=== PATIENT | male | born 1985 | race Caucasian/White ===

== ENCOUNTER 2025-02-10 16:55 | Emergency (ER) | payer BC, SELFPAY ==
[2025-02-10 17:01] VITALS: BP 132/83; PULSE 74; RESP 16; TEMP 36.9; O2SAT 94; BMI 31.2
--- NOTE | 2025-02-10 17:23 | CRLHL7_ITS ---
For Patients: As a result of the Century Cures Act, medical imaging exams and procedure reports are released immediately into your electronic medical record. You may view this report before your referring provider. If you have questions, please contact your health care provider. INDICATION: Shortness of breath, right upper rib pain anterior, osteogenesis imperfecta TECHNIQUE: Rib radiograph 2 views COMPARISON: None FINDINGS: The sensitivity and specificity of the exam are moderately limited by the patient`s body habitus. Bone: No definite acute rib fractures are identified in the visualized ribs. The remaining osseous structures are unremarkable for age. Lung: Small lung volumes are present with patchy consolidation and volume loss in the right middle lobe. No sign of pleural effusion seen. No pneumothorax is identified. Soft tissue: Unremarkable. No radiopaque foreign bodies are seen. IMPRESSIONS: 1. Small lung volumes are present with patchy consolidation and volume loss in the right middle lobe. These findings can be seen with atelectasis and/or pneumonia. 2. If there is a high clinical index of suspicion for rib injury, dedicated rib series radiographs are recommended. Dictated by Ronny Allen MD @ 02/10/2025 6:06:18 PM Dictated by: Ronny Allen MD @ 02/10/2025 18:06:23 (Electronically Signed)
--- NOTE | 2025-02-10 17:53 | ED.SOB ---
HPI - SOB/Dyspnea General Date Seen: 02/10/25 Chief Complaint: Shortness of Breath/Dyspnea Stated Complaint: Shortness of breath Time Seen by Provider: 02/10/25 17:07 Source: patient Mode of arrival: ambulatory Limitations: no limitations History of Present Illness HPI Narrative: Patient is a 39-year-old male presenting to the emergency department for shortness of breath. He states he is concerned he has pneumonia. States for the past 1-2 weeks he has been having cough, congestion, shortness of breath with chills and sweats. Is not having any midsternal chest pain. Does not notice any worsening pain with deep breaths. No history of blood clots. Is not on any hormonal treatment. Denies in recent surgeries, travel. Has not had any hemoptysis or unilateral leg swelling. Also states he is concerned he broke a rib after playing with his children over the weekend. Does have osteogenesis imperfecta and has 5/10 sharp pain to his right upper anterior ribs. Pain is worse with cough or movement. Denies having symptoms like this before. Is not aware of any sick contacts. Has been using a nebulizer at home without any improvement in his symptoms. Has not noticed any wheezing. Related Data Previous Rx's ?Medication ?Instructions ?Recorded azithromycin 250 mg tablet See Rx Instructions PO .COMPLEX #6 02/10/25 (Zithromax) tabs Allergies Allergy/AdvReac Type Severity Reaction Status Date / Time No Known Drug Allergies Allergy Verified 02/10/25 17:05 Review of Systems Status of ROS: Reports: 10 or more systems reviewed and unremarkable except as noted in History and below Exam Narrative: Exam Narrative: Const: Well-nourished, Well-developed, in mild distress Eyes: PERRL, no conjunctival injection, and symmetrical lids HENT: Atraumatic external nose and ears. Moist mucous membranes. Neck: Symmetric, trachea midline, No thyromegaly. CVS: RRR, No murmurs or gallops. Peripheral pulses 2+ and equal in all extremities RESP: Unlabored respiratory effort. Clear to auscultation bilaterally. GI: Nontender/Nondistended, No rebound or guarding. MSK:Extremities w/o deformity, Normal Active ROM, tenderness to palpation right upper chest at about ribs 3 Skin: Warm, Dry. No rashes or lesions. Neuro: Normal Muscle tone, No focal neurological deficits. Psych: Awake, Alert, & Oriented x3. Appropriate mood and affect. Const: Vital Signs, click to edit/add: Vital Signs - 24 hr 02/10/25 17:01 Temperature 98.5 F Pulse Rate [Pulse Oximeter] 74 Respiratory Rate 16 Blood Pressure [Ri ght Upper Arm] 132/83 Pulse Oximetry 94 Oxygen Delivery Me thod Room Air Course Vital Signs Vital signs: Initial Vital Signs Temperature 98.5 F 02/10/25 17:01 Temperature Source Oral 02/10/25 17:01 Pulse Rate 74 02/10/25 17:01 Respiratory Rate 16 02/10/25 17:01 Blood Pressure 132/83 02/10/25 17:01 Blood Pressure Mean 99 02/10/25 17:01 Blood Pressure Position Sitting 02/10/25 17:01 Pulse Oximetry 94 02/10/25 17:01 Oxygen Delivery Method Room Air 02/10/25 17:01 Vital Signs Temperature 98.5 F 02/10/25 17:01 Pulse Rate 74 02/10/25 17:01 Respiratory Rate 16 02/10/25 17:01 Blood Pressure 132/83 02/10/25 17:01 Pulse Oximetry 94 02/10/25 17:01 Oxygen Delivery Method Room Air 02/10/25 17:01 Temperature 98.5 F 02/10/25 17:01 Pulse Rate 74 02/10/25 17:01 Respiratory Rate 16 02/10/25 17:01 Blood Pressure 132/83 02/10/25 17:01 Pulse Oximetry 94 02/10/25 17:01 Oxygen Delivery Method Room Air 02/10/25 17:01 MDM - SOB/Dyspnea MDM Narrative Medical decision making narrative: Patient is a 39-year-old male presenting to the emergency department for shortness of breath. The differential diagnosis of shortness of breath is broad and includes common etiologies such as COPD, asthma, pneumonia, viral syndrome, etc. More serious etiologies considered include PE, CHF, coronary artery disease, pneumothorax, aortic dissection, aortic aneurysm. He is a current smoker but has no history of COPD or asthma and I do not hear any wheezing. His vital signs are stable and in her dissection and aortic aneurysm seem unlikely at this time. He is PERC negative and PE can not be ruled out. His chest pain is reproducible so ACS seems unlikely. Will do chest x-ray look for signs of pneumonia, pneumothorax, rib fracture. Symptoms seem likely viral and will order COVID/flu/RSV. Chest x-ray showed possible pneumonia. Considering his symptoms I will treat him for pneumonia. X-ray shows no clear fractures. As there is unlikely to be a large displaced fracture in treatment for a nondisplaced fracture is symptomatic I do not believe further imaging is necessary. This time will discharge home with azithromycin. He is agreeable to this plan. Lab Data Labs: Lab Results 02/10/25 Range/Units 17:05 SARS-CoV-2 (PCR) Negative SARS-CoV-2 (Negative) Influenza Type A (PCR) Negative PCR FLU A (Negative) Influenza Type B (PCR) Negative PCR FLU B (Negative) Imaging Data Chest x-ray: Attestation: I have reviewed the pertinent imaging results. Radiologist's impression: 1. Small lung volumes are present with patchy consolidation and volume loss in the right middle lobe. These findings can be seen with atelectasis and/or pneumonia. 2. If there is a high clinical index of suspicion for rib injury, dedicated rib series radiographs are recommended. Dictated by Ronny Allen MD @ 02/10/2025 6:06:18 PM Discharge Plan Discharge Clinical Impression: Pneumonia Qualifiers: Pneumonia type: due to unspecified organism Laterality: right Lung location: middle lobe of lung Qualified Code(s): J18.9 - Pneumonia, unspecified organism Patient Disposition: Home, Self-Care Condition: Stable Instructions: Pneumonia (ED) Additional Instructions: Take the prescribed Z-Kameron for your possible pneumonia. No obvious fracture was seen on your chest x-ray. There still might be a small nondisplaced fracture and do recommend Tylenol and ibuprofen for pain control. Return to emergency department for new or worsening symptoms. Prescriptions: New azithromycin [Zithromax] 250 mg tablet See Rx Instructions .ROUTE .COMPLEX Qty: 6 0RF Rx Instructions: For 250 mg dose pack: take 500 mg today (day 1), then 250 mg for 4 days (days 2-5) Follow Up/Referrals: Provider,Not a Local [Primary Care Provider] - Stand Alone Forms: [employer] Info Instructions
[2025-02-10 18:06] LABS: PCR FLU A Negative PCR FLU A (Negative); PCR FLU B Negative PCR FLU B (Negative); SARS PCR* Negative SARS-CoV-2 (Negative)
--- OUTSIDE RECORDS SUMMARY | 2025-02-10 18:15 | XMS_ITS | Clinical Summary ---
Author Organization [facility] Address [address] [place] [address] Care Team Providers Care Planning Management It Specialist Name Role Phone Found, No Pcp MD Primary Care Provider Unavailab le Source Comments You are receiving this document as you are listed as the primary care provider,follow-up provider, or the patient has been referred to you for consultation.This is in compliance with the Medicare andMedicaid EHR Incentive Program,which states Providers who transition their patient to another setting of careor provider of care or refers their patient to another provider of care shouldprovide summary care record for each transition of care or referral. [facility] Active Allergy Reactions Criticality Noted Date Comments Codeine Nausea And Vomiting 01/30/2010 Morphine Nausea And Vomiting 05/31/2006 Medications ibuprofen (MOTRIN) 800 MG tablet Take 1 tablet by mouth 3 times daily. 30 tablet 0 04/01/2012 Active acetaminophen (TYLENOL) 325 MG tablet Take 325-650 mg by mouth every 4 hours as needed. Maximum 4000mg per 24 hours 06/30/2012 Active predniSONE (DELTASONE) 20 MG tablet Take one 2x per day for 5 days. 10 Tablet 11/13/2018 Active Immunizations Immunization Administration Dates Next Due DTP 06/14/1992, 8,02/20/1987,1986,1986 HepB Adult (Engerix-B, 20+ y rs, 3 dose series) 03/09/1996,09/05/1995,04/15/1995 Hib (ActHIB) 08/13/1988 MMR 11/09/1987 OPV, Trivalent (Orimune or tOPV) 992,08/13/1988,1986,1985 TDAP (ADACEL) 07/07/2008 Social History Tobacco Use Types Packs/Day Years Used Date Smoking Tobacco: Every Day Cigarettes Smokeless Tobacco: Never Comments:Quit smoking: Sex and Gender Information Value Date Recorded Sex Assigned at Not on file Legal Sex Male 3:55 AM CDT Gender Identity Not on file Sexual Orientation Not on file Last Filed Vital Signs Vital Sign Reading Time Taken Comments Blood Pressure 142/81 11/13/2018 3:17 PM WINTER SPORTS MANAGER Pulse 82 11/13/2018 3:17 PM WINTER SPORTS MANAGER Temperature 36.9 C (98.4 F) 11/13/2018 3:17 PM WINTER SPORTS MANAGER Respiratory Rate 16 11/13/2018 3:17 PM WINTER SPORTS MANAGER Oxygen Saturation 96% 11/13/2018 3:17 PM WINTER SPORTS MANAGER Inhaled Oxygen Concentration - - Weight - - Height - - Body Mass Index - - Plan of Treatment Health Maintenance Due Date Last Done Comments Hep C Screening (Preventive Services) 1986 HIV Screening (Preventive Services) 2002 Adult Preventive Visit 2004 DTaP/Tdap/Td (7 - Tdap) 07/07/2018 07/07/20 08, 07/07/2008, 06/14/1992, Additional history exists Cholesterol 2021 COVID-19 Vaccine ( season) 2024 Influenza (#1) 2024 Zoster/Shingles (1 of 2) 2036 Hib Completed 08/13/1988 IPV (Polio) Completed 06/14/1992, 08/01, 1986, Additional history exists HepB Completed 03/09/1996, 05/1995, 04/15/1995 HPV Vaccine Aged Out No longer eligi ble based on patient's age to complete this topic HepA Aged Out No longer eligi ble based on patient's age to complete this topic MCV4 Aged Out No longer eligi ble based on patient's age to complete this topic Meningococcal B Aged Out No longer el igible based on patient's age to complete this topic Pneumococcal Aged Out No longer eligi ble based on patient's age to complete this topic Insurance [facility] INS WORK COMP Comp [id number] [address] Care Teams Planning Management It Specialist Relationship Specialty Start Date End Date Found, No Pcp, [address] [place] [address] PCP - General 07/29/18
--- OUTSIDE RECORDS SUMMARY | 2025-02-10 18:15 | XMS_ITS | Encounter Summary ---
Author Organization [facility] Address [address] [place] [address] Care Team Providers Care Photographic Laboratory Technician Name Role Phone No Ref-Primary, Physician Primary Care Provider Robert Recio MD Unavailable Luis M Rubalcava MD Unavailable [phone] Robert German MD Unavailable [phone] Luis M Rubalcava MD Unavailable [phone] Nelson Moore DO Primary Care Provider Nelson Moore DO Unavailable [phone] Reason for Visit * Reason Onset Date Comments Appointment 12/03/2018 hospital f/u maria victoria t Encounter Details Date Type Department Care Team (Late st Contact Info) Description 12/03/2018 Telephone [facility] Dermatology [address] [facility] 3rd [place] [address] Luis M Rubalcava MD [address] [place] [address] Appointment (hospital f/u appt) Social History Tobacco Use Types Packs/Day Years Used Date Smoking Tobacco: Former Cigarettes Smokeless Tobacco: Never Alcohol Use Standard Drinks/Week Comments Yes 0 (1 standard drink = 0.6 oz pur e alcohol) occasionally Sex and Gender Information Value Date Recorded Sex Assigned at Male 09/12/2021 5:21 PM CDT Legal 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 Gender Identity Male 09/12/2021 5:21 PM CDT Sexual Orientation Straight 09/12/2021 5: 21 PM CDT documented as of this encounter Miscellaneous Notes * Telephone Encounter - Selene Montillaie - 12/03/2018 4:02 PM CST [facility] Phone Message May a detailed message be left on voicemail: yes Reason for Call: Other: per pts fiance- called to [facility] f[facility] appt on the dec 08, thanks Action Taken: Message routed to: [facility] derm AGE CONTROL OPERATOR documented in this encounter Plan of Treatment Not on file documented as of this encounter Visit Diagnoses Not on filedocumented in this encounter Care Teams Photographic Laboratory Technician Relationship Specialty Start Date End Date No Ref-Primary, Physician PCP - General 11/21/18 11/28/22 [place] [address] [place] [address] PCP - General Family Medicine 11/29/22 [place] [address] [place] [address] Assigned PCP 08/15/19 08/16/22 Luis M Rubalcava MD [address] [place] [address] Assigned Pediatric Specialist Provider 09/22/20 12/31/20 Robert German MD [address] [place] [address] Assigned Rheumatology Provider 09/22/20 04/06/22 Luis M Rubalcava MD [address] [place] [address] Assigned Surgical Provider 09/22/20 [place] [address] [place] [address] Assigned PCP 12/07/22 documented as of this encounter
--- OUTSIDE RECORDS SUMMARY | 2025-02-10 18:15 | XMS_ITS | Encounter Summary ---
Author Organization [facility] Address [address] [place] [address] Care Team Providers Care Yard Inspector Name Role Phone Teresa Nelson Primary Care Provider [phone] Nelson Moore DO Unavailable [phone] Encounter Details Date Type Department Care Team (Late st Contact Info) Description 01/27/2023 [facility] [address] [place] [address] Stephani Ac Social History Tobacco Use Types Packs/Day Years Used Date Smoking Tobacco: Former Cigarettes Q uit: 07/01/2022 Smokeless Tobacco: Never Alcohol Use Standard Drinks/Week Comments Yes 0 (1 standard drink = 0.6 oz pur e alcohol) occasionally Social Connection and Isolat ion Panel [NHANES] Answer Date Recorded In a typical week, how many times do you talk on the phone with family, friends, or neighbors? More than three times a week 11/27/2022 How often do you get togethe r with friends or relatives? Twice a week 11/27/2022 How often do you attend chur ch or jainism services? Never 11/27/2022 Do you belong to any clubs o r organizations such as uatsdin groups, unions, fraternal or athletic groups, or school groups? Yes 11/27/2022 Attends Club or Organization Meetings Not on latasha e 11/27/2022 Are you , , di vorced, , never , or living with a partner? 11/27/2022 AUDIT-C Answer Date Recorded Q1: How often do you have a drink containing alc ohol? 2-4 times a month 11/27/2022 Q2: How many drinks containi ng alcohol do you have on a typical day when you are drinking? 3 or 4 11/27/2022 Q3: How often do you have si x or more drinks on one occasion? Less than monthly 11/27/2022 Overall Financial Resource Strain (CARDIA) Answe r Date Recorded How hard is it for you to pa y for the very basics like food, housing, medical care, and heating? Not hard at all 11/27/2022 PHQ-2 Answer Date Recorded PHQ-2 Score 0 11/27/2022 [facility] - Occupational Stress Questionnaire Answer Date Recorded Do you feel stress - tense, restless, nervous, or anxious, or unable to sleep at night because your mind is troubled all the time - these days? Only a little 11/27/2022 Exercise Vital Sign Answer Date Recorde d On average, how many days pe r week do you engage in moderate to strenuous exercise (like a brisk walk)? 5 days 11/27/2022 On average, how many minutes do you engage in exercise at this level? 80 min 11/27/2022 Hunger Vital Sign Answer Date Recorded Within the past 12 months, y ou worried that your food would run out before you got the money to buy more. Never true 11/27/20 22 Within the past 12 months, t he food you bought just didn't last and you didn't have money to get more. Never true 11/27/2022 PRAPARE - Transportation Answer Date Re corded In the past 12 months, has l ack of transportation kept you from medical appointments or from getting medications? No 11/01 In the past 12 months, has l ack of transportation kept you from meetings, work, or from getting things needed for daily living? No 11/27/2022 Housing Stability Vital Sign Answer En e Recorded In the last 12 months, was t here a time when you were not able to pay the mortgage or rent on time? No 11/27/2022 In the last 12 months, how many places have you lived? 1 11/27/2022 In the last 12 months, was t here a time when you did not have a steady place to sleep or slept in a fci (including now)? 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
--- OUTSIDE RECORDS SUMMARY | 2025-02-10 18:15 | XMS_ITS | Encounter Summary ---
Author Organization [facility] Address [address] [place] [address] Care Team Providers Care Cyanide Case Hardener Name Role Phone No Ref-Primary, Physician Primary Care Provider Robert Recio MD Unavailable Luis M Rubalcava MD Unavailable [phone] Robert German MD Unavailable [phone] Luis M Rubalcava MD Unavailable [phone] Nelson Moore DO Primary Care Provider [phone] Nelson Moore DO Unavailable [phone] Encounter Details Date Type Department Care Team (Late st Contact Info) Description 08/05/2019 [facility] [address] [address] Ana Paula Saenz RN Social History Tobacco Use Types Packs/Day Years Used Date Smoking Tobacco: Every Day Cigarettes Smokeless Tobacco: Never Alcohol Use Standard Drinks/Week Comments Yes 0 (1 standard drink = 0.6 oz pur e alcohol) occasionally PHQ-2 Answer Date Recorded PHQ-2 Score 0 05/11/2019 Sex and Gender Information Value Date Recorded Sex Assigned at Male 09/12/2021 5:21 PM CDT Legal Sex Male 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 Gender Identity Male 09/12/2021 5:21 PM CDT Sexual Orientation Straight 09/12/2021 5: 21 PM CDT documented as of this encounter Plan of Treatment Not on file documented as of this encounter Visit Diagnoses Not on filedocumented in this encounter Care Teams Cyanide Case Hardener Relationship Specialty Start Date End Date No Ref-Primary, Physician PCP - General 11/21/18 11/28/22 [place] [address] [place] [address] PCP - General Family Medicine 11/29/22 [place] [address] [place] [address] Assigned PCP 08/15/19 08/16/22 Luis M Rubalcava MD [address] [place] [address] Assigned Pediatric Specialist Provider 09/22/20 12/31/20 Robert German MD [address] [place] [address] Assigned Rheumatology Provider 09/22/20 04/06/22 Luis M Rubalcava MD [address] [place] [address] Assigned Surgical Provider 09/22/20 [place] [address] [place] [address] Assigned PCP 12/07/22 documented as of this encounter
--- OUTSIDE RECORDS SUMMARY | 2025-02-10 18:15 | XMS_ITS | Encounter Summary ---
Author Organization [facility] Address [address] [place] [address]. [place] [address] Care Team Providers Care Crater And Packer Name Role Phone No Ref-Primary, Physician Primary Care Provider Robert Recio MD Unavailable Robert German MD Unavailable [phone] Nelson Moore DO Primary Care Provider [phone] Nelson Moore DO Unavailable [phone] Reason for Visit * Reason Onset Date Comments Prior Authorization 11/20/2021 [facility] Encounter Details Date Type Department Care Team (Late st Contact Info) Description 11/20/2021 Telephone [facility] [address] [address] Robert German MD [address] [place] [address] Prior Authorization ([facility]) Social History Tobacco Use Types Packs/Day Years Used Date Smoking Tobacco: Every Day Cigarettes Smokeless Tobacco: Never Alcohol Use Standard Drinks/Week Comments Yes 0 (1 standard drink = 0.6 oz pur e alcohol) occasionally AUDIT-C Answer Date Recorded Q1: How often do you have a drink containing alc ohol? Monthly or less 06/07/2020 Q2: How many drinks containi ng alcohol do you have on a typical day when you are drinking? 1 or 2 06/07/2020 Q3: How often do you have si x or more drinks on one occasion? 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 Please initiate PA. R PRINT INSPECTOR documented in this encounter Plan of Treatment Not on file documented as of this encounter Visit Diagnoses Not on filedocumented in this encounter Care Teams Crater And Packer Relationship Specialty Start Date End Date No Ref-Primary, Physician PCP - General 11/21/18 11/28/22 [place] [address] [place] [address] PCP - General Family Medicine 11/29/22 [place] [address] [place], [place] [id number] Assigned PCP 08/15/19 08/16/22 Robert German MD [address] [place] [address] Assigned Rheumatology Provider 09/22/20 04/06/22 [place] [address] [place] [address] Assigned PCP 12/07/22 documented as of this encounter
--- OUTSIDE RECORDS SUMMARY | 2025-02-10 18:15 | XMS_ITS | Encounter Summary ---
Author Organization [place] Address [address] [place] [address] Care Team Providers Care Designer Architect Name Role Phone No Ref-Primary, Physician Primary Care Provider Robert Recio MD Unavailable Luis M Rubalcava MD Unavailable [phone] Robert German MD Unavailable [phone] Luis M Rubalcava MD Unavailable [phone] Nelson Moore DO Primary Care Provider [phone] Nelson Moore DO Unavailable [phone] Reason for Visit * Reason Onset Date Comments Clinic Care Coordination - Follow-up 03/20/2020 upcoming appt/need to change to Video/telephone Encounter Details Date Type Department Care Team (Latest Contact Info) Description 03/20/2020 [facility] [place] [facility] Adv[facility]ology [facility] [address] [address] Sebastáin Blackwood, RN Clinic Care Coordination - Follow-up (upco... Social History Tobacco Use Types Packs/Day Years Used Date Smoking Tobacco: Every Day Cigarettes Smokeless Tobacco: Never Alcohol Use Standard Drinks/Week Comments Yes 0 (1 standard drink = 0.6 oz pur e alcohol) occasionally PHQ-2 Answer Date Recorded PHQ-2 Score 0 05/11/2019 Sex and Gender Information Value Date Recorded Sex Assigned at Male 09/12/2021 5:21 PM CDT Legal Sex Male 3:13 AM FIELD SUPPORT REP Gender Identity Male 09/12/2021 5:21 PM CDT Sexual Orientation Straight 09/12/2021 5: 21 PM CDT COVID-19 Exposure Response Date Recorded In the last month, have you been in contact with someone who was confirmed or suspected to have Coronavirus / COVID-19? No / Unsure 03/21/2020 8:48 AM CDT documented as of this encounter Miscellaneous Notes * Telephone Encounter - Sebastián Blackwood RN - 03/20/2020 9:31 AM CDT Virtual [place] message sent to pt asking that he contact us to change his appointment to a video/telephoneappointment. Will ask the call center to contact Carole in clinic when pt returns call. SAMI Andrade RN Rheumatology Drill Runner Helper [facility] documented in this encounter Plan of Treatment Not on file documented as of this encounter Visit Diagnoses Not on filedocumented in this encounter Care Teams Designer Architect Relationship Specialty Start Date End Date No Ref-Primary, Physician PCP - General 11/21/18 11/28/22 [place] [address] [place] [address] PCP - General Family Medicine 11/29/22 [place] [address] [place] [address] Assigned PCP 08/15/19 08/16/22 Luis M Rubalcava MD [address] [place] [address] Assigned Pediatric Specialist Provider 09/22/20 12/31/20 Robert German MD [address] [place] [address] Assigned Rheumatology Provider 09/22/20 04/06/22 Luis M Rubalcava MD [address] [place] [address] Assigned Surgical Provider 09/22/20 [place] [address] [place] [address] Assigned PCP 12/07/22 documented as of this encounter
--- OUTSIDE RECORDS SUMMARY | 2025-02-10 18:15 | XMS_ITS | Encounter Summary ---
Author Organization [place] Address [address] [place] [address] Care Team Providers Care Air Conditioning Unit Assembler Name Role Phone No Ref-Primary, Physician Primary Care Provider Robert Recio MD Unavailable Luis M Rubalcava MD Unavailable [phone] Robert German MD Unavailable [phone] Luis M Rubalcava MD Unavailable [phone] Nelson Moore DO Primary Care Provider [phone] Nelson Moore DO Unavailable [phone] Reason for Visit * Reason Onset Date Comments Clinic Care Coordination - Follow-up 08/23/2019 symptom follow up phone call Encounter Details Date Type Department Care Team (Late st Contact Info) Description 08/23/2019 [facility] [place] [facility] [address] [address] Robert German MD [address] [place] [address] Clinic Care Coordination - Follow-up (symp... 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 NO answer. LVM for patient to call back the clinic directly at [phone]. Will also send patient a [place] message for further f/u. Ana Paula Saenz RN, BSN, PHN [facility] RN Treasury Associate Medicine Specialty Pool Nurse (Nephrology, Rheumatology, Infectious Disease & Hepatology) documented in this encounter Plan of Treatment Not on file documented as of this encounter Visit Diagnoses Not on filedocumented in this encounter Care Teams Air Conditioning Unit Assembler Relationship Specialty Start Date End Date No Ref-Primary, Physician PCP - General 11/21/18 11/28/22 [place] [address] [place] [address] PCP - General Family Medicine 11/29/22 [place] [address] [place] [address] Assigned PCP 08/15/19 08/16/22 Luis M Rubalcava MD [address] [place] [address] Assigned Pediatric Specialist Provider 09/22/20 12/31/20 Robert German MD [address] [place] [address] Assigned Rheumatology Provider 09/22/20 04/06/22 Luis M Rubalcava MD [address] [place] [address] Assigned Surgical Provider 09/22/20 [place] [address] [place] [address] Assigned PCP 12/07/22 documented as of this encounter
--- OUTSIDE RECORDS SUMMARY | 2025-02-10 18:15 | XMS_ITS | Encounter Summary ---
Author Organization [place] Address [address] [place] [address] Care Team Providers Care Grounds Person Name Role Phone No Ref-Primary, Physician Primary Care Provider Robert Recio MD Unavailable Luis M Rubalcava MD Unavailable [phone] Robert German MD Unavailable [phone] Nelson Moore DO Primary Care Provider [phone] Nelson Moore DO Unavailable [phone] Encounter Details Date Type Department Care Team (Late st Contact Info) Description 12/25/2020 [facility] [place] [facility] [address] [address] Chapis Botello, RN Social History Tobacco Use Types Packs/Day [...] PM CDT Legal Sex Male 3:13 AM AUTOMOTIVE ASSEMBLER Gender Identity Male 09/12/2021 5:21 PM CDT Sexual Orientation Straight 09/12/2021 5: 21 PM CDT documented as of this encounter Plan of Treatment Not on file documented as of this encounter Visit Diagnoses Not on filedocumented in this encounter Care Teams Grounds Person Relationship Specialty Start Date End Date No Ref-Primary, Physician PCP - General 11/21/18 11/28/22 [place] [address] [place] [address] PCP - General Family Medicine 11/29/22 [place] [address] [place] [address] Assigned PCP 08/15/19 08/16/22 Luis M Rubalcava MD [address] [place] [address] Assigned Pediatric Specialist Provider 09/22/20 12/31/20 Robert German MD [address] [place] [address] Assigned Rheumatology Provider 09/22/20 04/06/22 [place] [address] [place] [address] Assigned PCP 12/07/22 documented as of this encounter
--- OUTSIDE RECORDS SUMMARY | 2025-02-10 18:15 | XMS_ITS | Encounter Summary ---
Author Organization [facility] Address [address] [place] [address] Care Team Providers Care Licensing Officer Name Role Phone No Ref-Primary, Physician Primary Care Provider Robert Recio MD Unavailable Luis M Rubalcava MD Unavailable [phone] Robert German MD Unavailable [phone] Luis M Rubalcava MD Unavailable [phone] Nelson Moore DO Primary Care Provider [phone] Nelson Moore DO Unavailable [phone] Encounter Details Date Type Department Care Team (Late st Contact Info) Description 01/01/2019 [facility] [place] 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 Gender Identity Male 09/12/2021 5:21 PM CDT Sexual Orientation Straight 09/12/2021 5: 21 PM CDT documented as of this encounter Plan of Treatment Not on file documented as of this encounter Visit Diagnoses Not on filedocumented in this encounter Care Teams Licensing Officer Relationship Specialty Start Date End Date No Ref-Primary, Physician PCP - General 11/21/18 11/28/22 [place] [address] [place] [address] PCP - General Family Medicine 11/29/22 [place] [address] [place] [address] Assigned PCP 08/15/19 08/16/22 Luis M Rubalcava MD [address] [place] [address] Assigned Pediatric Specialist Provider 09/22/20 12/31/20 Robert German MD [address] [place] [address] Assigned Rheumatology Provider 09/22/20 04/06/22 Luis M Rubalcava MD [address] [place] [address] Assigned Surgical Provider 09/22/20 [place] [address] [place] [address] Assigned PCP 12/07/22 documented as of this encounter
--- OUTSIDE RECORDS SUMMARY | 2025-02-10 18:15 | XMS_ITS | Encounter Summary ---
Author Organization [facility] Address [address] [place] [address] Care Team Providers Care Body Care Manager Name Role Phone No Ref-Primary, Physician Primary Care Provider Robert Recio MD Unavailable Luis M Rubalcava MD Unavailable [phone] Robert German MD Unavailable [phone] Luis M Rubalcava MD Unavailable [phone] Nelson Moore DO Primary Care Provider [phone] Nelson Moore DO Unavailable [phone] Encounter Details Date Type Department Care Team (Late st Contact Info) Description 02/15/2020 [facility] [place] 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 No / Unsure 02/14/2020 11:41 AM CDT documented as of this encounter Plan of Treatment Not on file documented as of this encounter Visit Diagnoses Not on filedocumented in this encounter Care Teams Body Care Manager Relationship Specialty Start Date End Date No Ref-Primary, Physician PCP - General 11/21/18 11/28/22 [place] [address] [place] [address] PCP - General Family Medicine 11/29/22 [place] [address] [place] [address] Assigned PCP 08/15/19 08/16/22 Luis M Rubalcava MD [address] [place] [address] Assigned Pediatric Specialist Provider 09/22/20 12/31/20 Robert German MD [address] [place] [address] Assigned Rheumatology Provider 09/22/20 04/06/22 Luis M Rubalcava MD [address] [place] [address] Assigned Surgical Provider 09/22/20 [place] [address] [place] [address] Assigned PCP 12/07/22 documented as of this encounter
--- OUTSIDE RECORDS SUMMARY | 2025-02-10 18:16 | XMS_ITS | Clinical Summary ---
Author Organization [facility] Address [address] [place] [address] Care Team Providers Care Bath Mix Operator Name Role Phone Nelson Moore DO Primary Care Provider [phone] Nelson Moore DO Unavailable [phone] Allergies Active Allergy Reactions Criticality Noted Date Comments Codeine Nausea and Vomiting 04/12/2014 Morphine Nausea and Vomiting 04/12/2014 Medications anakinra (KINERET) 100 MG/0.67ML SOSY injectionIndica tions:Still's disease (H) Inject 0.67 mLs (100 mg) Subcutaneous daily Hold for signs of infection, then seek medical attention. 66 mL 3 3 Active Active Problems Problem Noted Date Diagnosed Date Mixed conductive and sensorineural hearing loss of left ear 08/11/2019 Overview (08/11/2019): Uses hearing aid occasionally. 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 External hemorrhoids 04/12/2014 Resolved Problems Problem Noted Date Diagnosed Date Resolved Date Fever and chills 12/02/2018 08/11/2019 Weakness 11/22/2018 08/11/2019 Immunizations Name Administration Dates Next Due COVID-19 MONOVALENT 12+ (Pfizer) 12/21/2021,043 ,03/08/2021 DTAP (<7y) 06/14/1992, 8,02/20/1987,1986,1986 HIB (PRP-T) 08/13/1988 HepB 10/16/1998, 6,09/05/1995,1994 Hepatitis B, Adult (Energix-B/Recombivax HB) 03/09/1996,09/05/1995,04/15/1995 Historical DTP/aP 06/14/1992, 8,02/20/1987,1986,1986 Historical Hepb 10/16/1998 Influenza Vaccine >6 months,quad, PF 08/11/2019 MMR (MMRII) 10/16/1998,11/09/1987 OPV, trivalent, live 06/14/1992,08/13/19 88,1986,1985 OPV, unspecified 06/14/1992, 8,1986,1985 TDAP (Adacel,Boostrix) 07/07/2008 TDAP Vaccine (Adacel) 06/04/2020,07/07/2008 Family History Medical History Relation Comments Genetic Disorder Father OI Diabetes Maternal Aunt Cancer - colorectal Maternal Grandfather Cerebrovascular Disease Maternal Grandmother Diabetes Maternal Grandmother Hypertension Maternal Grandmother Melanoma No family hx of Skin Cancer No family hx of Relation Status Comments Father Alive Maternal Aunt Maternal Grandfather Maternal Grandmother Mother Alive Paternal Grandfather Paternal Grandmother Social History Tobacco Use Types Packs/Day Years Used Date Smoking Tobacco: Former Cigarettes Q uit: 07/01/2022 Smokeless Tobacco: Never Tobacco Cessation:Counseling Given: Not Answered Alcohol Use Standard Drinks/Week Comments Yes 0 [...] often do you attend chur ch or pentecostal services? Never 11/27/2022 Do you belong to any clubs o r organizations such as adventist groups, unions, fraternal or athletic groups, or [...] Answer Date Recorded PHQ-2 Score 0 11/27/2022 [facility] - Occupational Stress Questionnaire Answer Date [...] place to sleep or slept in a detention (including now)? No 11/27/2022 Adolescent Education Answer Date Record ed Getting School Help Needed Not on file 08/30 Sex and Gender Information Value Date Recorded Sex Assigned at Male 09/12/2021 5:21 PM CDT Legal Sex Male 3:13 AM MICROWAVE OVEN ASSEMBLER Gender Identity Male 09/12/2021 5:21 PM CDT Sexual Orientation Straight 09/12/2021 5: 21 PM CDT Last Filed Vital Signs Vital Sign Reading Time Taken Comments Blood Pressure 102/68 11/27/2022 3:53 PM MICROWAVE OVEN ASSEMBLER Pulse 61 11/27/2022 3:53 PM MICROWAVE OVEN ASSEMBLER Temperature 36.5 C (97.7 F) 11/27/2022 3:53 PM MICROWAVE OVEN ASSEMBLER Respiratory Rate 16 11/27/2022 3:53 PM MICROWAVE OVEN ASSEMBLER Oxygen Saturation 99% 11/27/2022 3:53 PM MICROWAVE OVEN ASSEMBLER Inhaled Oxygen Concentration - - Weight 96.7 kg (213 lb 3.2 oz) 11/27/2022 3:53 P M MICROWAVE OVEN ASSEMBLER Height 180.3 cm (5' 11) 11/27/2022 3:53 PM MICROWAVE OVEN ASSEMBLER Body Mass Index 29.74 11/27/2022 3:53 PM MICROWAVE OVEN ASSEMBLER Plan of Treatment Health Maintenance Due Date Last Done Comments Pneumococcal Vaccine: Pediatrics (0 to 5 Years) and At-Risk Patients (6 to 49 Years) (1 of 2 - PCV) 2005 ZOSTER IMMUNIZATION (1 of 2) 2005 ANNUAL REVIEW OF HM ORDERS 11/27/2023 11/27/2022 YEARLY PREVENTIVE VISIT 11/27/2023 11/27/20, 11/27/2022, 08/11/2019, Additional history exists ADVANCE CARE PLANNING 12/03/2023 12/03/2018 COVID-19 Vaccine ( season) 2024 12/21/2021, 03/30/2021, 03/08/2021 INFLUENZA VACCINE (#1) 2024 08/11/2019 PHQ-2 (once per calendar year) 2024 11/27/2022, 10/03/2020, 08/11/2019, Additional history exists GLUCOSE 11/27/2025 11/27/2022, 08/01, 05/01/2019, Additional history exists DTAP/TDAP/TD IMMUNIZATION (9 - Td or Tdap) 06/04/2030 06/04/2020, 07/07/2008, 07/07/2008, Additional history exists RSV VACCINE (1 - 1-dose 75+ series) 2061 HEPATITIS B IMMUNIZATION Completed 998, 10/16/1998, 03/09/1996, Additional history exists HIV SCREENING Completed 11/24/2018 HEPATITIS C SCREENING Discontinued HPV IMMUNIZATION Aged Out No longer e ligible based on patient's age to complete this topic MENINGITIS IMMUNIZATION Aged Out No l onger eligible based on patient's age to complete this topic RSV MONOCLONAL ANTIBODY Aged Out No l onger eligible based on patient's age to complete this topic Procedures Procedure Name Priority Date/Time Associated Diagnosis Comments COMPREHENSIVE METABOLIC PANEL Routine 11/27/2022 4:26 PM MICROWAVE OVEN ASSEMBLER Routine general medical examination at a health care facility HIV ANTIGEN ANTIBODY COMBO Routine 11/24/2018 8:55 AM MICROWAVE OVEN ASSEMBLER Progressive focal motor weakness from Last 3 Months or Most Recently Relevant to Health Maintenance Results * Comprehensive metabolic panel (11/27/2022 4:26 PM MICROWAVE OVEN ASSEMBLER) Sodium 136 136 - 145 mmol/L 11/28/2022 3:17 PM MICROWAVE OVEN ASSEMBLER [facility] Potassium 4.8 3.4 - 5.3 mmol/L 11/28/2022 3:17 PM MICROWAVE OVEN ASSEMBLER [facility] Chloride 100 98 - 107 mmol/L 11/28/2022 3:17 PM MICROWAVE OVEN ASSEMBLER [facility] Carbon Dioxide (CO2) 23 22 - 29 mmol/L 11/28/2022 3:17 PM MICROWAVE OVEN ASSEMBLER [facility] Anion Gap 13 7 - 15 mmol/L 11/28/2022 3:17 PM MICROWAVE OVEN ASSEMBLER [facility] Urea Nitrogen 16.1 6.0 - 20.0 mg/dL 11/28/2022 3:17 PM MICROWAVE OVEN ASSEMBLER [facility] Creatinine 0.89 0.67 - 1.17 mg/dL 11/28/2022 3:17 PM MICROWAVE OVEN ASSEMBLER [facility] Calcium 9.9 8.6 - 10.0 mg/dL 11/28/2022 3:17 PM MICROWAVE OVEN ASSEMBLER [facility] Glucose 98 70 - 99 mg/dL 11/28/2022 3:17 PM MICROWAVE OVEN ASSEMBLER [facility] Alkaline Phosphatase 79 40 - 129 U/L 11/28/2022 3:17 PM MICROWAVE OVEN ASSEMBLER [facility] AST 32 10 - 50 U/L 11/28/2022 3:17 PM MICROWAVE OVEN ASSEMBLER [facility] ALT 43 10 - 50 U/L 11/28/2022 3:17 PM MICROWAVE OVEN ASSEMBLER [facility] Protein Total 6.9 6.4 - 8.3 g/dL 11/28/2022 3:17 PM MICROWAVE OVEN ASSEMBLER [facility] Albumin 4.5 3.5 - 5.2 g/dL 11/28/2022 3:17 PM MICROWAVE OVEN ASSEMBLER [facility] Bilirubin Total 0.4 <=1.2 mg/dL 11/28/2022 3:17 PM MICROWAVE OVEN ASSEMBLER [facility] GFR Estimate >90 >60 mL/min/1.7 3m2 11/28/2022 3:17 PM MICROWAVE OVEN ASSEMBLER [facility] Comment:Effective November 012020 eGFRcr in adults is calculated using the 2020 CKD-EPI creatinine equation which includes age and gender (Denise et al., NEJM, DOI: 10.1056/VRIWks6666301) Blood BLOOD SPECIMEN / Unknown Venipuncture / Unknown 11/27/2022 4:26 PM MICROWAVE OVEN ASSEMBLER 11/27/2022 4:26 PM MICROWAVE OVEN ASSEMBLER us Nelson Moore DO LAB - BLOOD ORDERABLES Final Re sult [facility] [address] [facility] [address], Room [address] [place] [address] [phone] * HIV Antigen Antibody Combo (11/24/2018 8:55 AM MICROWAVE OVEN ASSEMBLER) HIV Antigen Antibody Combo Nonreactive NR^Nonrea ctive 11/25/2018 12:15 PM MICROWAVE OVEN ASSEMBLER [facility] Comment:HIV-1 p24 Ag & HIV-1 /HIV-2 Ab Not Detected Blood specimen (specimen) 11/24/2018 8:55 AM MICROWAVE OVEN ASSEMBLER 11/24/2018 9:21 AM MICROWAVE OVEN ASSEMBLER Preet Esteves MD LAB - BLOOD ORDERABLES Final Result [facility] [address] from Last 3 Months or Most Recently Relevant to Health Maintenance Insurance [employer] Advance Directives For more information, please contact: [phone] * Full Code (Latest Code Status on File) Date Activated Date Inactivated Comments 12/02/2018 11:36 PM 12/04/2018 8:55 PM Question Answer Comments Code status determined by: Discussion with gorge nt/legal decision maker Care Teams Bath Mix Operator Relationship Specialty [place] [address] [place] [address] PCP - General Family Medicine 11/29/22 [place] [address] [place] [address] Assigned PCP 12/07/22
== END 2025-02-10 18:52 | disposition home or self-care (01) ==
PROVIDERS: Emergency Provider Student in an Organized Health Care Education/Training Program
DX: J18.9 Pneumonia, unspecified organism (principal)
CPT/HCPCS: 71046; 87631; 99283; 99284